=== PATIENT | male | born 1980 | race Caucasian/White ===

== ENCOUNTER 2021-10-25 18:47 | Emergency (ER) | payer OTHER, SELFPAY ==
--- NOTE | ~2021-10-25 | XR_ITS ---
EXAMINATION: XR ankle LT min 3V EXAM DATE: 10/25/2021 19:14 INDICATION: Ankle red and swollen, NKI, pain. TECHNIQUE: Left ankle frontal, lateral and oblique projections obtained and reviewed. There is no pr ior study for comparison. FINDINGS: The left ankle mortise appears intact. There are no acute fractures or dislocations ident ified. There is no subcutaneous gas. There is soft tissue swelling over the ankle anteriorly. Ther e are no radiopaque foreign bodies. IMPRESSION: Anterior soft tissue swelling. Reviewed, dictated and finalized at location A. [employer] H[employer] DIRECT[employer]
--- NOTE | 2021-10-25 18:51 | ED.LOWEXIN ---
HPI - Extremity Injury (Lower) General Chief Complaint: Extremity Injury, Lower Stated Complaint: Left Ankle Injury Time Seen by Provider: 10/25/21 18:51 Source: patient and RN notes reviewed History of Present Illness HPI Narrative: Patient is a 41-year-old male who presents the urgent care with complaints of left ankle pain and swelling. Patient states that he was hiking this evening and walking through the [place] but denies of any known trauma/injury/fall. Patient states that approximately 2 hours ago he started to have extreme left ankle pain and noticed swelling. Patient states he is now having a lot of pain with weightbearing. Patient has placed ice on the ankle but denies of taking anything [id number] for pain prior to arrival. No other acute complaints. No acute distress noted. Patient under the plan of care. Some parts of this dictation were generated by voice recognition software and may contain typographical and/or grammatical inaccuracies. Related Data Home Medications Medication Instructions Recorded Confirmed No Home Medications 10/25/21 10/25/21 Allergies Allergy/AdvReac Type Severity Reaction Status Date / Time No Known Allergies Allergy Verified 10/25/21 19:07 Review of Systems Review of Systems: CONSTITUTIONAL: Denies fever, chills, or sweats. EYES: Denies visual changes, redness, or discharge. ENT: Denies rhinorrhea, congestion, sore throat, or otalgia. CARDIOVASCULAR: Denies chest pain, palpitations, or edema. RESPIRATORY: Denies cough or dyspnea. GASTROINTESTINAL: Denies abdominal pain, nausea, vomiting, or diarrhea. GENITOURINARY: Denies dysuria or hematuria. SKIN: Denies rash or itching. MUSCULOSKELETAL: Reports of left ankle pain and swelling NEUROLOGIC: Denies headache, numbness, or weakness. All other systems reviewed are negative, except as documented in HPI. PMFSH Comments At the time of my signature, I reviewed and agree with the nursing past medical, surgical, social, and family history. There is no relevant family history pertinent to the patient complaint. Exam Narrative: GENERAL: This is a well-nourished, well-developed patient, in no apparent distress. HEAD: normocephalic, atraumatic. EYES: PERRL. Sclera clear/white. Vision is grossly intact. EARS: External ears normal NOSE: External nose normal with no obvious nasal discharge, nares without redness, no rhinorrhea. THROAT: Mucous membranes moist NECK: Neck supple CARDIOVASCULAR: Regular rate and rhythm without murmurs, gallops, or rubs. RESPIRATORY: Clear to auscultation. Breath sounds equal bilaterally. No wheezes, rales, or rhonchi. SKIN: warm, intact with no suspicious lesions or rash, good texture and turgor. NEURO: awake, alert, and oriented to person, place and time. There were no obvious focal neurologic abnormalities. EXTREMITIES: Mild to moderate edema noted to the lateral left malleolus with mild tenderness. Range of motion to left lower extremity not tested due to pain. Positive strong left pedal pulse with capillary refill less than 2 seconds. No obvious deformity to left lower extremity Course Vital Signs Vital signs: Vital Signs Temperature 98.7 F 10/25/21 19:02 Pulse Rate 85 10/25/21 19:02 Respiratory Rate 16 10/25/21 19:02 Blood Pressure 133/80 10/25/21 19:02 Pulse Oximetry 98 10/25/21 19:02 Temperature 98.7 F 10/25/21 19:02 Pulse Rate 85 10/25/21 19:02 Respiratory Rate 16 10/25/21 19:02 Blood Pressure 133/80 10/25/21 19:02 Pulse Oximetry 98 10/25/21 19:02 Reviewed MDM - Extremity Injury (Lower) MDM Narrative Medical decision making narrative: Reviewed x-ray results with the patient. He is aware that x-ray was negative for fracture. It appears that the ankle is sprained. Wear the Seb wrap as directed and limit any strenuous activity or weightbearing activity until the next 3 to 5 days or until activity as tolerated. Keep the foot elevated and use ice/Tyle
[2021-10-25 19:02] VITALS: BP 133/80; PULSE 85; RESP 16; TEMP 37.1; O2SAT 98
== END 2021-10-25 19:40 | disposition home or self-care (01) ==
PROVIDERS: Emergency Provider Nurse Practitioner Family; PCP Family Medicine
DX: S93.402A Sprain of unspecified ligament of left ankle, initial encounter (principal); S96.912A Strain of unspecified muscle and tendon at ankle and foot level, left foot, initial encounter; X58.XXXA Exposure to other specified factors, initial encounter; Y93.01 Activity, walking, marching and hiking
CPT/HCPCS: 73610; 99213; G0463